=== PATIENT | male | born 2000 | race Asian ===

== ENCOUNTER 2023-08-01 09:46 | Emergency (ER) | payer OTHER ==
[2023-08-01 09:50] VITALS: BP 157/90; PULSE 88; RESP 16; TEMP 99.4; BMI 11.4
[2023-08-01] MEDS ORDERED: SULFAMETHOXAZOLE/TRIMETHOPRIM 800MG/160MG D.S. TABLET PO ONE (10:10)
[2023-08-01] MEDS ORDERED: SULFAMETHOXAZOLE/TRIMETHOPRIM 800MG/160MG D.S. TABLET ONE (10:12)
== END 2023-08-01 10:15 | disposition home or self-care (01) ==
LOC: FER 09:46
DX: L02.212 Cutaneous abscess of back [any part, except buttock and flank] (principal)
CPT/HCPCS: 87070; 87205; 99283-25